=== PATIENT | male | born 1970 | race Caucasian/White ===

== ENCOUNTER 2019-03-14 20:00 | Outpatient (CLI) | payer BC, SELFPAY | END 2019-03-14 20:01 | disposition home or self-care (01) | LOC: SLEEP 03-15 09:54 | PROVIDERS: Family Provider Nurse Practitioner Family; PCP Nurse Practitioner Family; Visit Provider Nurse Practitioner Family | DX: G47.33 Obstructive sleep apnea (adult) (pediatric) (principal) | CPT/HCPCS: 95810; 95811 ==

== ENCOUNTER → 2020-01-16 09:26 | Outpatient (BNVA) | payer BC, SELFPAY | PROVIDERS: Family Provider Nurse Practitioner Family; PCP Nurse Practitioner Family; Visit Provider Nurse Practitioner | DX: I10 Essential (primary) hypertension (principal); E78.2 Mixed hyperlipidemia | CPT/HCPCS: 80053; 80061; 81000; 85025 ==

== ENCOUNTER → 2020-12-19 11:01 | Outpatient (BNVA) | payer BC, SELFPAY | PROVIDERS: Family Provider Nurse Practitioner Family; PCP Nurse Practitioner Family; Visit Provider Nurse Practitioner | DX: M25.561 Pain in right knee (principal); M54.50 Low back pain, unspecified; M79.605 Pain in left leg; I10 Essential (primary) hypertension; G47.33 Obstructive sleep apnea (adult) (pediatric); F41.9 Anxiety disorder, unspecified; F32.9 Major depressive disorder, single episode, unspecified; J45.909 Unspecified asthma, uncomplicated; E78.2 Mixed hyperlipidemia; M47.816 Spondylosis without myelopathy or radiculopathy, lumbar region; M17.11 Unilateral primary osteoarthritis, right knee | CPT/HCPCS: 72100; 73562; 80053; 80061; 84443 ==

== ENCOUNTER 2021-01-31 13:02 | Outpatient (CLI) | payer BC, SELFPAY ==
--- NOTE | 2021-01-31 13:09 | XR_ITS ---
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 Findings: No abnormal intraabdominal masses or calcifications are seen. There is no dilatated small bowel or ev idence of obstruction. There is a moderate amount of fecal material in the ascending colon. 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 XR/XR abdomen 1V* [id number] Impression: Negative KUB.
[2021-01-31 13:34] LABS: Basophils # 0.1 10^3/uL (0.0-0.1); Basophils % 0.4 %; Hematocrit 45.3 % (42.0-52.0); Hemoglobin 14.8 g/dL (11.7-16.6); Lymphocytes # 1.1 10^3/uL (0.8-4.8); Lymphocytes % 4.5 %; Mean Corpuscular HGB Conc 32.7 g/dL (30.0-36.0); Mean Corpuscular Hemoglobin 28.6 pg (28.0-34.0); Mean Corpuscular Volume 87.6 fl (80-94); Mean Platelet Volume 11.2 fL (7.4-10.4); Monocytes # 1.8 10^3/uL (0.2-0.9); Monocytes % 7.2 %; Neutrophils # 21.43 10^3/uL (1.8-7.7); Nucleated Red Blood Cells % 0 %; Platelet Count 207 10^3/cmm (130-400); Red Blood Count 5.17 10^6/uL (4.1-5.3); Red Cell Distribution Width 13.2 % (12.1-15.1); White Blood Count 24.7 10^3/uL (4.0-10.0)
[2021-01-31 13:54] LABS: Alanine Aminotransferase 17 U/L (0-41); Alkaline Phosphatase 56 IU/L (40-130); Anion Gap 16.1 (5-19); Aspartate Amino Transferase 14 U/L (0-40); Blood Urea Nitrogen 15 mg/dL (6-20); Calcium 8.5 mg/dL (8.5-10.5); Carbon Dioxide 22 mmol/L (22-29); Chloride 101 mmol/L (98-107); Globulin 3.6 g/dL (1.3-4.6); Glomerular Filtration Rate 71.1 mL/min (90-130); Glucose 168 mg/dL (65-115); Osmolality Calculated 285 mOsm/kg (285-295); Potassium 4.1 mmol/L (3.5-5.1); Sodium 135 mmol/L (136-145); Total Bilirubin 0.8 mg/dL (0.15-1.2); Total Protein 7.6 g/dL (6.6-8.7)
[2021-01-31 14:28] LABS: Estmated Average Glucose 114; Hemoglobin A1C 5.6 % (4.0-6.0)
== END 2021-01-31 13:03 | disposition home or self-care (01) ==
PROVIDERS: PCP Nurse Practitioner Family; Visit Provider Nurse Practitioner Family
DX: N41.9 Inflammatory disease of prostate, unspecified (principal); R73.9 Hyperglycemia, unspecified
CPT/HCPCS: 74018; 80053; 81003; 83036; 85025; 87086

== ENCOUNTER 2021-03-05 10:29 | Outpatient (CLI) | payer BC, SELFPAY ==
[2021-03-05 10:37] VITALS: BP 152/67; PULSE 56; RESP 20; TEMP 36.4; O2SAT 97; BMI 43.3
[2021-03-05 11:10] VITALS: BP 125/73; PULSE 59; RESP 16; TEMP 36.4; O2SAT 97
[2021-03-05 12:10] VITALS: BP 113/63; PULSE 76; RESP 16; TEMP 36.6; O2SAT 95
== END 2021-03-05 10:30 | disposition home or self-care (01) ==
LOC: OPS 10:30
PROVIDERS: PCP Nurse Practitioner Family; Visit Provider Nurse Practitioner
DX: U07.1 COVID-19 (principal)
CPT/HCPCS: 96365

== ENCOUNTER 2021-03-08 12:06 | Inpatient (IN) | payer BC, SELFPAY ==
[2021-03-08] VITALS (8 sets, daily range): BP systolic 121–146; BP diastolic 70–91; PULSE 66–77; RESP 21–27; TEMP 36.6–36.7; O2SAT 92–95; BMI 43.3
--- NOTE | 2021-03-08 12:21 | XR_ITS ---
WS: [id number] Portable AP upright chest, 03/08/2021 Clinical Data: dyspnea/cough Comparison: None. Findings: Bilateral patchy pulmonary opacities are present with more on the left than the right. No n odules, masses or effusions are seen. The heart is normal. There may be right tracheal bronchial lymp h nodes. The pulmonary vascularity is normal. No pneumothorax is seen. XR/XR chest 1V portable [id number] Impression: 1. Patchy bilateral pulmonary opacities most consistent with diffuse pneumonia. 2. Possible right tracheobronchial adenopathy.
--- NOTE | 2021-03-08 12:21 | ECG_ITS ---
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 Measurements Intervals [place] Rate: 75 P: 89 GA: 140 QRS: 20 QRSD: 102 T: 55 QT: 377 QTc: 421 Interpretive Statements SINUS RHYTHM WITH OCCASIONAL VENTRICULAR PREMATURE COMPLEXES LOW QRS VOLTAGE IN PRECORDIAL LEADS [QRS DEFLECTION < 1.0 mV IN CHEST LEADS] PROBABLE LATERAL MYOCARDIAL INFARCTION , OF INDETERMINATE AGE [35 ms Q WAVE IN I/aVL/V5/V6] No previous ECG available for comparison Electronically Signed On 03-08-2021 17:53:46 PROJECT ADMIN by Ricarda Neville M.D. [id number]
[2021-03-08 12:56] LABS: ABG PCO2 31.6 mmHg (35-45); ABG PH Result 7.42 (7.35-7.45); Alveolar-Arterial Oxygen Gradi 5.5 mmHg (5-10); Arterial Blood Gas Hematocrit 46.5 % (42-52); Base Excess ABG -2.7 mmol/L (-2.0-2.0); Blood Gas Allen Test Pos; Blood Gas Sample Site Radial, right; Blood Gas Sample Type Arterial; Carboxyhemoglobin 0.8 %THgb (0.4-20.1); HCO3 ABG 20.6 mmol/L (22-26); HGB O2 Sat 93.4 % (95-100); Ionized Calcium Level - ABG 1.1 mmol/L (1.1-1.4); Methemoglobin 0.7 % (0.4-1.5); Oxygen Saturation ABG 94.9; PO2 ABG 68.7 mmHg (80.0-100.0); Potassium Level - ABG 4.4 mmol/L (3.5-5.0); Total Hemoglobin 15.2 g/dL (14-18)
--- NOTE | 2021-03-08 13:28 | W.ED.COVID ---
HPI - COVID General: Chief Complaint: Shortness of Breath/Dyspnea Stated Complaint: COVID + SOB,Weakness,LowO2,and [place] Time Seen by Provider: 03/08/21 12:20 Triage information: Has fever, cough or shortness of breath. Exposure to COVID + person last 14 days History of Present Illness: HPI Narrative: 51-year-old male presents emergency room with complaints of shortness of breath and hypoxia. 5 days ago patient had a positive home COVID test 2 days ago he had monoclonal antibodies. His daughter is a nurse was at home with him and noticed him increasingly short of breath she checked his O2 sats and reports that they were in the 70% range with activity with rest improved to the mid to low 80s. On arrival here we are tracking mid to low 90s on room air at rest. Patient is obese has a history of hypertension is not diabetic. He is currently on doxycycline. MD complaint: known COVID positive Prior covid testing: yes, results known Prior testing date: 03/03/21 COVID 19 common symptoms: positive fever(s), chills, cough, non-productive cough, dyspnea, fatigue, body aches, headache(s), throat pain, nasal congestion, nausea, diarrhea and chest tightness; negative loss of sense of smell and/or taste or vomiting COVID 19 other sytmptoms: positive requiring oxygen; negative chest pain Onset (ago): day(s) (10) Severity: moderate Pertinent comorbid conditions: hypertension and obesity Treatment prior to arrival: none COVID Results: SARS-CoV-2 (PCR) Detected (NOT DETECT) A 03/08/21 13:55 03/08/21 Coronavirus Type 229E (PCR) Not detected (NOT DETECT) 03/08/21 13:55 03/08/21 Review of Systems Const: Reports: fever(s), chills, body aches and fatigue ENMT: Reports: throat pain and nasal congestion Card: Denies: chest pain, edema, dyspnea on exertion or orthopnea Resp: Reports: dyspnea and non-productive cough GI: Reports: nausea and diarrhea; Denies: vomiting : Denies: flank pain, dysuria, urinary frequency or urinary urgency Skin/Breast: Denies: rash or pruritus Neuro: Reports: headache(s) PFSH ED PFSH: Medical History Anxiety and depression Essential (primary) hypertension Lumbar degenerative disc disease Mixed hyperlipidemia Severe obstructive sleep apnea Surgical History No pertinent past surgical history Family History Other Cancer Heart disease Social History Second hand smoke exposure: No Smoking risk assessment/counseling performed?: No Alcohol intake: never Desire information about alcohol rehabilitation?: No Counseling given: No Desire information about substance/drug rehabilitation?: No Counseling given: No Adopted: No Caregiver/support person: No Lives independently: Yes Household members: spouse Marital status: Number of children: 2 service: No Current occupational status: employed History of recent travel: No Current gender identity: Male Physical Exam Const: COMMON NORMALS: no acute distress GENERAL APPEARANCE: cooperative and comfortable ORIENTATION/CONSCIOUSNESS: Yes awake, Yes oriented to person, Yes oriented to place and Yes oriented to time HENMT: COMMON NORMALS: normocephalic, atraumatic and hearing grossly normal bilaterally HEAD & SCALP: normocephalic and atraumatic Neck/C-Spine: COMMON NORMALS: no JVD Lymph: LYMPHATIC: no lymphadenopathy noted and no lymphedema noted Resp: AUSCULTATION: crackles and wheezes Cardio: COMMON NORMALS: no JVD, regular rate, regular rhythm and No murmurs present (Cardio) RATE: regular rate RHYTHM: regular rhythm GI: COMMON NORMALS: Soft to palpation and No hepatosplenomegaly present AUSCULTATION: Yes normoactive bowel sounds PALPATION: Yes Soft to palpation, No Tenderness to palpation present (GI), No Guarding due to palpation present (GI) and Yes No hepatosplenomegaly present Extremity: COMMON NORMALS: normal to inspection, capillary refill normal, no clubbing, cyanosis or edema, no calf tenderness and no pedal edema Neuro: SENSORIUM/ORIENTATION: Yes oriented to person, Yes oriented to place and Yes oriented to time Skin: COMMON NORMALS: no rashes or lesions noted GENERAL SKIN EXAM: no rashes or lesions noted Course Vital Signs: Vital signs: Vital Signs Temperature 97.5 F L 03/09/21 12:00 Pulse Rate 69 03/09/21 12:00 Respiratory Rate 20 H 03/09/21 12:00 Blood Pressure 137/76 03/09/21 12:00 Pulse Oximetry 92 03/09/21 12:00 MDM - COVID MDM Narrative: Medical decision making narrative: Patient is COVID-positive. I am concerned about the report from at home where he desatted into the low 80s and even upper 70 percentile. His daughter is a nurse who actually has significant experience dealing with COVID patients and was caring for him at home and monitored this she reported this history. His chest x-ray is very concerning. Here in the emergency room his sats have been very good. I do think given that report of hypoxia that he needs to be on observation I think he is at significant risk for respiratory deterioration and compromise. He certainly has significant risk factors including obesity and hypertension I suspect he has impaired glucose tolerance. Addition to this he has a significant elevation in CRP which can be predictive of a more difficult course with COVID. Patient has already maximized outpatient therapy needs received monoclonal antibodies. We will go ahead and start remdesivir and dexamethasone. Lab Data: Labs: Lab Results 03/08/21 03/08/21 03/08/21 12:40 13:55 13:55 WBC 13.0 10^3/uL H 10 ^3/uL (4.0-10.0) RBC 5.40 10^6/uL H 10 ^6/uL (4.1-5.3) Hgb 15.4 g/dL g/dL (11.7-16.6) Hct 46.1 % % (42.0-52.0) MCV 85.4 fl fl (80-94) MCH 28.5 pg pg (28.0-34.0) MCHC 33.4 g/dL g/dL (30.0-36.0) RDW 12.7 % % (12.1-15.1) Plt Count 305 10^3/cmm 10^3 /cmm (130-400) MPV 11.0 fL H fL (7.4-10.4) Neut % (Auto) 86.3 % % Lymph % (Auto) 4.5 % % [place] % (Auto) 7.5 % % Eos % (Auto) 0.0 % % Baso % (Auto) 0.5 % % Neut # (Auto) 11.24 10^3/uL H 1 0^3/uL (1.8-7.7) Lymph # (Auto) 0.6 10^3/uL L 10^ 3/uL (0.8-4.8) [place] # (Auto) 1.0 10^3/uL H 10^ 3/uL (0.2-0.9) Eos # (Auto) 0.0 10^3/uL 10^3/ uL (0.0-0.8) Baso # (Auto) 0.1 10^3/uL 10^3/ uL (0.0-0.1) Nucleated RBC % (a uto) 0 % % Nucleated RBCs # 0.0 /100WBC /100W BC D-Dimer 1.42 ug/mIFEU H u g/mIFEU (0-0.59) Specimen Type Arterial Sample Site Radial, right ABG pH 7.42 (7.35-7.45) ABG pCO2 31.6 mmHg L mmHg (35-45) ABG pO2 68.7 mmHg L mmHg (80.0-100.0) ABG HCO3 20.6 mmol/L L mmo l/L (22-26) ABG O2 Saturation 94.9 ABG Base Excess -2.7 mmol/L L mmo l/L (-2.0-2.0) Silas Test Pos A-a O2 Gradient 5.5 mmHg mmHg (5-10) Hematocrit 46.5 % % (42-52) Hgb O2 Saturation 93.4 % L % (95-100) Carboxyhemoglobin 0.8 %THgb %THgb (0.4-20.1) Methemoglobin 0.7 % % (0.4-1.5) Total Hemoglobin 15.2 g/dL g/dL (14-18) Sodium 133.0 mmol/L mmol /L (131-143) Potassium 4.4 mmol/L mmol/L (3.5-5.0) Glucose 120.0 mg/dL H mg/ dL (70-115) Ionized Calcium 1.1 mmol/L mmol/L (1.1-1.4) O2 Delivery Device None O2 Liters/Min FiO2 21.0 % % Research Compliance Specialist ID Hensa Chloride Carbon Dioxide Anion Gap BUN Creatinine GFR Calculation POC Glucose Calculated Osmolal ity Lactic Acid Calcium Magnesium Total Bilirubin AST ALT Alkaline Phosphata se Lactate Dehydrogen ase C-Reactive Protein Total Protein Albumin Globulin Procalcitonin Coronavirus 229E ( PCR) SARS-CoV-2 (PCR) 03/08/21 03/08/21 03/08/21 13:55 13:55 13:55 WBC RBC Hgb Hct MCV MCH MCHC RDW Plt Count MPV Neut % (Auto) Lymph % (Auto) [place] % (Auto) Eos % (Auto) Baso % (Auto) Neut # (Auto) Lymph # (Auto) [place] # (Auto) Eos # (Auto) Baso # (Auto) Nucleated RBC % (a uto) Nucleated RBCs # D-Dimer Specimen Type Sample Site ABG pH ABG pCO2 ABG pO2 ABG HCO3 ABG O2 Saturation ABG Base Excess Silas Test A-a O2 Gradient Hematocrit Hgb O2 Saturation Carboxyhemoglobin Methemoglobin Total Hemoglobin Sodium 131 mmol/L L mmol /L (136-145) Potassium 4.5 mmol/L mmol/L (3.5-5.1) Glucose 114 mg/dL mg/dL (65-115) Ionized Calcium O2 Delivery Device O2 Liters/Min FiO2 Research Compliance Specialist ID Chloride 96 mmol/L L mmol/ L (98-107) Carbon Dioxide 20 mmol/L L mmol/ L (22-29) Anion Gap 19.5 H (5-19) BUN 24 mg/dL H mg/dL (6-20) Creatinine 1.1 mg/dL mg/dL (0.7-1.2) GFR Calculation 70.9 mL/min L mL/ min (90-130) POC Glucose Calculated Osmolal ity 277 mOsm/kg L mOs m/kg (285-295) Lactic Acid 1.3 mmol/L mmol/L (0.5-2.2) Calcium 8.7 mg/dL mg/dL (8.5-10.5) Magnesium Total Bilirubin 0.5 mg/dL mg/dL (0.15-1.2) AST 46 U/L H U/L (0-40) ALT 40 U/L U/L (0-41) Alkaline Phosphata se 43 IU/L IU/L (40-130) Lactate Dehydrogen ase C-Reactive Protein 158.0 mg/L H mg/L (0.0-4.9) Total Protein 7.7 g/dL g/dL (6.6-8.7) Albumin 3.9 g/dL g/dL (3.5-5.2) Globulin 3.8 g/dL g/dL (1.3-4.6) Procalcitonin 0.43 ng/mL ng/mL (0-0.5) Coronavirus 229E ( PCR) Not detected (NOT DETECT) SARS-CoV-2 (PCR) Detected A (NOT DETECT) 03/08/21 03/09/21 03/09/21 20:37 04:32 04:32 WBC 11.2 10^3/uL H 10 ^3/uL (4.0-10.0) RBC 4.94 10^6/uL 10^6 /uL (4.1-5.3) Hgb 13.9 g/dL g/dL (11.7-16.6) Hct 41.2 % L % (42.0-52.0) MCV 83.4 fl fl (80-94) MCH 28.1 pg pg (28.0-34.0) MCHC 33.7 g/dL g/dL (30.0-36.0) RDW 12.7 % % (12.1-15.1) Plt Count 325 10^3/cmm 10^3 /cmm (130-400) MPV 11.3 fL H fL (7.4-10.4) Neut % (Auto) 84.7 % % Lymph % (Auto) 5.6 % % [place] % (Auto) 8.4 % % Eos % (Auto) 0.0 % % Baso % (Auto) 0.1 % % Neut # (Auto) 9.47 10^3/uL H 10 ^3/uL (1.8-7.7) Lymph # (Auto) 0.6 10^3/uL L 10^ 3/uL (0.8-4.8) [place] # (Auto) 0.9 10^3/uL 10^3/ uL (0.2-0.9) Eos # (Auto) 0.0 10^3/uL 10^3/ uL (0.0-0.8) Baso # (Auto) 0.0 10^3/uL 10^3/ uL (0.0-0.1) Nucleated RBC % (a uto) 0 % % Nucleated RBCs # 0.0 /100WBC /100W BC D-Dimer Specimen Type Sample Site ABG pH ABG pCO2 ABG pO2 ABG HCO3 ABG O2 Saturation ABG Base Excess Silas Test A-a O2 Gradient Hematocrit Hgb O2 Saturation Carboxyhemoglobin Methemoglobin Total Hemoglobin Sodium 131 mmol/L L mmol /L (136-145) Potassium 4.5 mmol/L mmol/L (3.5-5.1) Glucose 132 mg/dL H mg/dL (65-115) Ionized Calcium O2 Delivery Device O2 Liters/Min FiO2 Research Compliance Specialist ID Chloride 98 mmol/L mmol/L (98-107) Carbon Dioxide 21 mmol/L L mmol/ L (22-29) Anion Gap 16.5 (5-19) BUN 29 mg/dL H mg/dL (6-20) Creatinine 1.0 mg/dL mg/dL (0.7-1.2) GFR Calculation 79.1 mL/min L mL/ min (90-130) POC Glucose 197 mg/dL H mg/dL (70-110) Calculated Osmolal ity 280 mOsm/kg L mOs m/kg (285-295) Lactic Acid Calcium 8.1 mg/dL L mg/dL (8.5-10.5) Magnesium 2.7 mg/dL H mg/dL (1.7-2.3) Total Bilirubin 0.4 mg/dL mg/dL (0.15-1.2) AST 43 U/L H U/L (0-40) ALT 40 U/L U/L (0-41) Alkaline Phosphata se 35 IU/L L IU/L (40-130) Lactate Dehydrogen ase 460 U/L H U/L (135-225) C-Reactive Protein Total Protein 6.8 g/dL g/dL (6.6-8.7) Albumin 3.5 g/dL g/dL (3.5-5.2) Globulin 3.3 g/dL g/dL (1.3-4.6) Procalcitonin Coronavirus 229E ( PCR) SARS-CoV-2 (PCR) 03/09/21 03/09/21 05:57 09:50 WBC RBC Hgb Hct MCV MCH MCHC RDW Plt Count MPV Neut % (Auto) Lymph % (Auto) [place] % (Auto) Eos % (Auto) Baso % (Auto) Neut # (Auto) Lymph # (Auto) [place] # (Auto) Eos # (Auto) Baso # (Auto) Nucleated RBC % (a uto) Nucleated RBCs # D-Dimer Specimen Type Arterial Arterial Sample Site Radial, left Radial, right ABG pH 7.45 7.43 (7.35-7.45) (7.35-7.45) ABG pCO2 31.8 mmHg L mmHg 31.9 mmHg L mmHg (35-45) (35-45) ABG pO2 48.8 mmHg L mmHg 55.3 mmHg L mmHg (80.0-100.0) (80.0-100.0) ABG HCO3 21.8 mmol/L L mmo l/L 21.2 mmol/L L mmo l/L (22-26) (22-26) ABG O2 Saturation 87.0 90.0 ABG Base Excess -1.4 mmol/L mmol/ L -2.2 mmol/L L mmo l/L (-2.0-2.0) (-2.0-2.0) Silas Test Pos Pos A-a O2 Gradient 8.1 mmHg mmHg 7.2 mmHg mmHg (5-10) (5-10) Hematocrit 42.6 % % 43.0 % % (42-52) (42-52) Hgb O2 Saturation 85.3 % L % 88.4 % L % (95-100) (95-100) Carboxyhemoglobin 0.9 %THgb %THgb 0.8 %THgb %THgb (0.4-20.1) (0.4-20.1) Methemoglobin 1.1 % % 0.9 % % (0.4-1.5) (0.4-1.5) Total Hemoglobin 13.9 g/dL L g/dL 14.0 g/dL g/dL (14-18) (14-18) Sodium 133.0 mmol/L mmol /L 134.0 mmol/L mmol /L (131-143) (131-143) Potassium 4.3 mmol/L mmol/L 4.1 mmol/L mmol/L (3.5-5.0) (3.5-5.0) Glucose 129.0 mg/dL H mg/ dL 145.0 mg/dL H mg/ dL (70-115) (70-115) Ionized Calcium 1.1 mmol/L mmol/L 1.2 mmol/L mmol/L (1.1-1.4) (1.1-1.4) O2 Delivery Device Room air Nc O2 Liters/Min 2.0 % % FiO2 21.0 % % Research Compliance Specialist ID Nicer2 Dave Chloride Carbon Dioxide Anion Gap BUN Creatinine GFR Calculation POC Glucose Calculated Osmolal ity Lactic Acid Calcium Magnesium Total Bilirubin AST ALT Alkaline Phosphata se Lactate Dehydrogen ase C-Reactive Protein Total Protein Albumin Globulin Procalcitonin Coronavirus 229E ( PCR) SARS-CoV-2 (PCR) COVID Results: SARS-CoV-2 (PCR) Detected (NOT DETECT) A 03/08/21 13:55 03/08/21 Coronavirus Type 229E (PCR) Not detected (NOT DETECT) 03/08/21 13:55 03/08/21 Discharge Plan Discharge Patient Disposition: Placed in Observation Admit Provider: Neela Mercedes Clinical Impression: Pneumonia due to COVID-19 virus Condition: Stable Coding Level of Care Code ED Leaf Size Picker for Chg Fwd Exam Comprehensive
[2021-03-08 14:15] LABS: Basophils # 0.1 10^3/uL (0.0-0.1); Basophils % 0.5 %; Hematocrit 46.1 % (42.0-52.0); Hemoglobin 15.4 g/dL (11.7-16.6); Lymphocytes # 0.6 10^3/uL (0.8-4.8); Lymphocytes % 4.5 %; Mean Corpuscular HGB Conc 33.4 g/dL (30.0-36.0); Mean Corpuscular Hemoglobin 28.5 pg (28.0-34.0); Mean Corpuscular Volume 85.4 fl (80-94); Monocytes % 7.5 %; Neutrophils # 11.24 10^3/uL (1.8-7.7); Neutrophils % 86.3 %; Nucleated Red Blood Cells % 0 %; Platelet Count 305 10^3/cmm (130-400); Red Cell Distribution Width 12.7 % (12.1-15.1)
[2021-03-08 14:28] LABS: Lactic Sepsis W/Reflex 1.3 mmol/L (0.5-2.2)
[2021-03-08 14:30] LABS: Alanine Aminotransferase 40 U/L (0-41); Albumin Level 3.9 g/dL (3.5-5.2); Alkaline Phosphatase 43 IU/L (40-130); Anion Gap 19.5 (5-19); Aspartate Amino Transferase 46 U/L (0-40); Blood Urea Nitrogen 24 mg/dL (6-20); Calcium 8.7 mg/dL (8.5-10.5); Carbon Dioxide 20 mmol/L (22-29); Chloride 96 mmol/L (98-107); Globulin 3.8 g/dL (1.3-4.6); Glomerular Filtration Rate 70.9 mL/min (90-130); Glucose 114 mg/dL (65-115); Osmolality Calculated 277 mOsm/kg (285-295); Potassium 4.5 mmol/L (3.5-5.1); Sodium 131 mmol/L (136-145); Total Bilirubin 0.5 mg/dL (0.15-1.2); Total Protein 7.7 g/dL (6.6-8.7)
[2021-03-08 14:31] LABS: D Dimer 1.42 ug/mIFEU (0-0.59)
[2021-03-08 14:37] LABS: Procalcitonin 0.43 ng/mL (0-0.5)
--- NOTE | 2021-03-08 15:22 | PC.PHAR ---
pt states he takes care of his own medications-pt states he hasnt taken his hydroxychloroquine in about 8 days ext med history shows last filled 12/18/20 90d/s pt states gave to him for prevention of covid-
[2021-03-08] MEDS: dexamethasone 10 mg/mL INJ 6 MG IVP (15:40)
[2021-03-08 16:03] LABS: Adenovirus Not Detected (NOT DETECT); Chlamydia Pneumoniae Not Detected (NOT DETECT); Coronavirus 229E,HKU1,NL63,OC4 Not Detected (NOT DETECT); Human Metapneumovirus Not Detected (NOT DETECT); Human Rhinovirus/Enterovirus Not Detected (NOT DETECT); Influenza A Not Detected (NOT DETECT); Influenza A H1 Not Detected (NOT DETECT); Influenza A H1-2009 Not Detected (NOT DETECT); Influenza A H3 Not Detected (NOT DETECT); Influenza B Not Detected (NOT DETECT); Mycoplasma Pneumoniae Not Detected (NOT DETECT); Parainfluenza Virus Type 1 Not Detected (NOT DETECT); Parainfluenza Virus Type 2 Not Detected (NOT DETECT); Parainfluenza Virus Type 3 Not Detected (NOT DETECT); Parainfluenza Virus Type 4 Not Detected (NOT DETECT); Respiratory Syncytial Virus A Not Detected (NOT DETECT); Respiratory Syncytial Virus B Not Detected (NOT DETECT); SARS-COV-2 Detected (NOT DETECT)
--- NOTE | 2021-03-08 16:08 | CTR_ITS ---
PROCEDURE INFORMATION: Exam: CTA Chest With Contrast Exam date and time: 03/08/2021 4:08 PM Age: 51 years old Clinical indication: Shortness of breath; Additional info: Dyspnea/covid TECHNIQUE: Imaging protocol: Computed tomographic angiography of the chest with contrast. 3D rendering (Not supervised by radiologist): MIP and/or 3D reconstructed images were created by the technologist. Radiation optimization: All CT scans at this facility use at least one of these dose optimization techniques: automated exposure control; mA and/or kV adjustment per patient size (includes targeted exams where dose is matched to clinical indication); or iterative reconstruction. Contrast material: OMNI 350; Contrast volume: 95 ml; Contrast route: INTRAVENOUS (IV); COMPARISON: CR XR chest 1V portable [id number] 03/08/2021 1:35 PM RADIATION DOSE METRICS: Total DLP (mGy-cm): 611.07 FINDINGS: Pulmonary arteries: Normal. No pulmonary emboli. Aorta: Unremarkable. No aortic aneurysm. No aortic dissection. Lungs: Patchy bilateral airspace infiltrates. Pleural spaces: Unremarkable. No pneumothorax. No pleural effusion. Heart: Coronary artery atherosclerotic calcifications. Lymph nodes: Prominent mediastinal lymph nodes measuring up to 15 mm, nonspecific. Bones/joints: Unremarkable. No acute fracture. Soft tissues: Unremarkable. CT/CT angio chest PE protcl [id number] IMPRESSION: 1. Negative for pulmonary embolus 2. Patchy bilateral airspace infiltrates. 3. Prominent mediastinal lymph nodes measuring up to 15 mm, nonspecific. 4. Coronary artery atherosclerotic calcifications.
--- NOTE | 2021-03-08 16:27 | P.HP_ITS ---
Providers/Chief Complaint Primary Care Provider: BHAKTI Quintanilla Chief Complaint: COVID + SOB,Weakness,LowO2,and [place] History of Present Illness Du Bah is a 51 year old male with past medical history of anxiety depression, hypertension, degenerative disc disease in the lumbar region, hyperlipidemia, severe obstructive sleep apnea presented to the hospital today for COVID-like symptoms. He has been having shortness of breath and hypoxia. He states that symptoms started about 9 days ago he was tested positive on Thursday. He got 1 treatment of monoclonal antibodies and feels he got worse. His daughter checked his pulse ox at home and he was saturating in the 70s with activity and with rest did improve to the mid low 80s.. Therefore he was brought to the hospital. He is currently on doxycycline as an outpatient. ED course: Blood pressure 123/76 heart rate 24, pulse 77, temperature 97.9, pulse ox 95%. Chest x-ray was done which showed patchy bilateral pulmonary opacities most consistent with diffuse pneumonia. Possible right tracheobronchial adenopathy. D-dimer 1.42, CRP 158. CTA ordered to rule out pulmonary embolism. COVID PCR positive. Urinalysis did show positive leukocyte esterase and 15-25 WBCs. Review of Systems General: Reports: 10 or more systems reviewed and unremarkable except in HPI and below Medications/Allergies Home Medications Medication Instructions Recorded Confirmed Last Taken Type albuterol sulfate 90 mcg/actuation 2 puff INHALATION Q6H PRN #8.5 gm 12/19/20 03/08/21 Unknown Rx aerosol inhaler Disposable nebulizer circuit #1 ea 03/04/21 03/08/21 Unknown Rx albuterol sulfate 2.5 mg INHALATION Q4H PRN #75 ml 03/04/21 03/08/21 Unknown Rx budesonide 0.5 mg/2 mL suspension 0.5 mg INHALATION BID #60 ml 03/04/21 03/08/21 Unknown Rx for nebulization Effexor XR 75 mg PO BEDTIME 03/08/21 03/08/21 03/07/21 History Lasix 20 mg PO QAM PRN 03/08/21 03/08/21 Unknown History Tricor 145 mg PO BEDTIME 03/08/21 03/08/21 03/07/21 History ascorbic acid (vitamin C) [Vitamin 500 mg PO DAILY 03/08/21 03/08/21 Unknown History C] aspirin [Aspir-81] 81 mg PO PRN PRN 03/08/21 03/08/21 Unknown History cholecalciferol (vitamin D3) 125 mcg PO DAILY 03/08/21 03/08/21 Unknown History [Vitamin D3] dexamethasone 6 mg PO DAILY 03/08/21 03/08/21 03/08/21 09:30 History doxepin 10 mg PO BEDTIME 03/08/21 03/08/21 03/07/21 History hydroxychloroquine 200 mg PO EVERY OTHER DAY 03/08/21 03/08/21 Unknown History lisinopril 20 mg PO BEDTIME 03/08/21 03/08/21 03/07/21 History naproxen sodium [Aleve] 440 mg PO Q12H PRN 03/08/21 03/08/21 Unknown History zinc 50 mg PO DAILY 03/08/21 03/08/21 Unknown History Allergies Allergy/AdvReac Type Severity Reaction Status Date / Time Penicillins Allergy Unknown Verified 03/08/21 15:18 PFSH Acute PFSH: Medical History Anxiety and depression Essential (primary) hypertension Lumbar degenerative disc disease Mixed hyperlipidemia Severe obstructive sleep apnea Surgical History No pertinent past surgical history Family History Other Cancer Heart disease Social History Second hand smoke exposure: No Smoking risk assessment/counseling performed?: No Alcohol intake: never Desire information about alcohol rehabilitation?: No Counseling given: No Desire information about substance/drug rehabilitation?: No Counseling given: No Adopted: No Caregiver/support person: No Lives independently: Yes Household members: spouse Marital status: Number of children: 2 service: No Current occupational status: employed History of recent travel: No Current gender identity: Male Vitals/I&O/Wt Last Vital Signs Temp 97.9 F 03/08/21 12:23 Pulse 70 03/08/21 15:30 Resp 21 H 03/08/21 15:30 BP 141/80 03/08/21 15:30 Pulse Ox 94 03/08/21 15:30 Weight last 48 hrs Weight 174.633 kg Physical Exam Narrative: EXAM NARRATIVE: General: Alert oriented x3, patient seen sitting up in bed on room air. HEENT: Normocephalic, atraumatic, EOMI, Cardio: Regular rate rhythm, normal S1-S2, no murmurs rubs gallops Respiratory: Good bilateral air entry, no wheezes no rhonchi appreciated GI: Abdomen soft, nontender, nondistended, bowel sounds + Behavior: Appropriate and cooperative Extremities: Pulses 2+, no edema, no cyanosis Data : 03/09/21 04:32 03/09/21 04:32 Micro: Microbiology 03/08/21 13:55 Blood Culture - Preliminary Blood SPECIMEN COLLECTED 03/08/21 13:55 Blood Culture - Preliminary Blood SPECIMEN COLLECTED A&P Assessment and plan (1) Severe obstructive sleep apnea: Status: Chronic (2) Pneumonia due to COVID-19 virus: Status: Acute (3) Essential (primary) hypertension: Status: Chronic Additional A&P Information #COVID-19 pneumonia #Severe obstructive sleep apnea #Obesity #Hypertension ? We will place on dexamethasone 6 IV daily, remdesivir x5 days ? Placed on CPAP overnight ? DuoNeb every 4 hours as needed ? Supportive care ? Oxygen as needed ? CRP 158. ? Monitor oxygen. ? Vitamin C vitamin D ? Continue home medications for hypertension ? Sliding scale insulin -Check CTA to rule out PE -Procalcitonin borderline negative. Hold off on antibiotics today. Full code DVT prophylaxis Lovenox 40 twice daily. Attestations Medical Necessity Statement*: COVID 19 pneumonia. Observation tonight Coding Level of Care Code Acute Therapy Tech for [facility] Fwd Diagnoses Severe obstructive sleep apnea G47.33 Pneumonia due to COVID-19 virus U07.1; J12.82 Essential (primary) hypertension I10
[2021-03-08] MEDS: remdesivir 200 MG in sodium chloride 0.9% (100 ml) 60 ML 100 MG IV (17:40)
[2021-03-08] MEDS: enoxaparin 40 mg/0.4 mL Syringe SUBCUT (18:12)
[2021-03-08] MEDS: ascorbic acid 500 mg Tablet 1000 MG PO (18:12)
[2021-03-08] MEDS: pantoprazole 40 mg SDV IVP (18:35)
[2021-03-08 20:42] LABS: Glucose Point of Care 197 mg/dL (70-110)
[2021-03-08] MEDS: venlafaxine ER (24HR) 75 mg Capsule PO (21:07)
[2021-03-08] MEDS: insulin lispro 100 unit/1 mL SUBCUT (21:07)
[2021-03-08] MEDS: lisinopril 20 mg Tablet PO (21:07)
[2021-03-09] VITALS (15 sets, daily range): BP systolic 122–152; BP diastolic 71–82; PULSE 66–94; RESP 18–22; TEMP 36.4–37.3; O2SAT 90–94
[2021-03-09 04:53] LABS: Basophils % 0.1 %; Hematocrit 41.2 % (42.0-52.0); Hemoglobin 13.9 g/dL (11.7-16.6); Lymphocytes # 0.6 10^3/uL (0.8-4.8); Lymphocytes % 5.6 %; Mean Corpuscular HGB Conc 33.7 g/dL (30.0-36.0); Mean Corpuscular Hemoglobin 28.1 pg (28.0-34.0); Mean Corpuscular Volume 83.4 fl (80-94); Mean Platelet Volume 11.3 fL (7.4-10.4); Monocytes # 0.9 10^3/uL (0.2-0.9); Monocytes % 8.4 %; Neutrophils # 9.47 10^3/uL (1.8-7.7); Neutrophils % 84.7 %; Nucleated Red Blood Cells % 0 %; Platelet Count 325 10^3/cmm (130-400); Red Blood Count 4.94 10^6/uL (4.1-5.3); Red Cell Distribution Width 12.7 % (12.1-15.1); White Blood Count 11.2 10^3/uL (4.0-10.0)
[2021-03-09 05:15] LABS: Alanine Aminotransferase 40 U/L (0-41); Albumin Level 3.5 g/dL (3.5-5.2); Alkaline Phosphatase 35 IU/L (40-130); Anion Gap 16.5 (5-19); Aspartate Amino Transferase 43 U/L (0-40); Blood Urea Nitrogen 29 mg/dL (6-20); Calcium 8.1 mg/dL (8.5-10.5); Carbon Dioxide 21 mmol/L (22-29); Chloride 98 mmol/L (98-107); Globulin 3.3 g/dL (1.3-4.6); Glomerular Filtration Rate 79.1 mL/min (90-130); Glucose 132 mg/dL (65-115); Lactate Dehydrogenase 460 U/L (135-225); Magnesium 2.7 mg/dL (1.7-2.3); Osmolality Calculated 280 mOsm/kg (285-295); Potassium 4.5 mmol/L (3.5-5.1); Sodium 131 mmol/L (136-145); Total Bilirubin 0.4 mg/dL (0.15-1.2); Total Protein 6.8 g/dL (6.6-8.7)
[2021-03-09 06:09] LABS: ABG PCO2 31.8 mmHg (35-45); ABG PH Result 7.45 (7.35-7.45); Alveolar-Arterial Oxygen Gradi 8.1 mmHg (5-10); Arterial Blood Gas Hematocrit 42.6 % (42-52); Base Excess ABG -1.4 mmol/L (-2.0-2.0); Blood Gas Allen Test Pos; Blood Gas Sample Site Radial, left; Blood Gas Sample Type Arterial; Carboxyhemoglobin 0.9 %THgb (0.4-20.1); HCO3 ABG 21.8 mmol/L (22-26); HGB O2 Sat 85.3 % (95-100); Ionized Calcium Level - ABG 1.1 mmol/L (1.1-1.4); Methemoglobin 1.1 % (0.4-1.5); Oxygen Device ROOM AIR; PO2 ABG 48.8 mmHg (80.0-100.0); Potassium Level - ABG 4.3 mmol/L (3.5-5.0); Total Hemoglobin 13.9 g/dL (14-18)
--- NOTE | 2021-03-09 08:00 | XRR_ITS ---
PROCEDURE INFORMATION: Exam: XR Chest Exam date and time: 03/09/2021 8:00 AM Age: 51 years old Clinical indication: Cough; Patient HX: F/u covid +; Additional info: Follow up TECHNIQUE: Imaging protocol: XR of the chest. Views: 1 view. COMPARISON: CR XR chest 1V portable [id number] 03/08/2021 1:35 PM FINDINGS: Lungs: Low lung volumes. No significant interval change patchy interstitial and alveolar opacities at the mid lungs and bases. No dense lobar consolidation. Pleural spaces: Unremarkable. No pleural effusion. No pneumothorax. Heart/Mediastinum: Unremarkable. No cardiomegaly. Bones/joints: Unremarkable. XR/XR chest 1V portable [id number] IMPRESSION: No significant interval change bilateral patchy interstitial and alveolar infiltrates in the setting of reported covid pneumonia.
[2021-03-09] MEDS: enoxaparin 40 mg/0.4 mL Syringe SUBCUT ×2 (08:27→17:49)
[2021-03-09] MEDS: zinc gluconate 50 mg Tablet PO (08:27)
[2021-03-09] MEDS: ascorbic acid 500 mg Tablet 1000 MG PO ×2 (08:27→17:50)
[2021-03-09] MEDS: ipratropium-albuterol 3 mL Neb INHALATION ×4 (09:49→20:35)
[2021-03-09 09:59] LABS: ABG PCO2 31.9 mmHg (35-45); ABG PH Result 7.43 (7.35-7.45); Alveolar-Arterial Oxygen Gradi 7.2 mmHg (5-10); Base Excess ABG -2.2 mmol/L (-2.0-2.0); Blood Gas Allen Test Pos; Blood Gas Sample Site Radial, right; Blood Gas Sample Type Arterial; Carboxyhemoglobin 0.8 %THgb (0.4-20.1); HCO3 ABG 21.2 mmol/L (22-26); HGB O2 Sat 88.4 % (95-100); Ionized Calcium Level - ABG 1.2 mmol/L (1.1-1.4); Methemoglobin 0.9 % (0.4-1.5); Oxygen Device NC; PO2 ABG 55.3 mmHg (80.0-100.0); Potassium Level - ABG 4.1 mmol/L (3.5-5.0)
--- NOTE | 2021-03-09 14:10 | P.PN_ITS ---
Subjective Subjective: Interval history: Seen this AM. He is requiring 4L NC o2 but does not feel short of breath. Daughter updated at bedside. Will order actemra for him. Pt willing to wear bipap tonight with possible addition of xanax for anxiety. RN will page if needed. Vitals/I&O/Wt Last Vital Signs Temp 97.5 F L 03/09/21 12:00 Pulse 69 03/09/21 12:00 Resp 20 H 03/09/21 12:00 BP 137/76 03/09/21 12:00 Pulse Ox 92 03/09/21 12:00 03/08/21 03/09/21 03/09/21 22:59 06:59 14:59 Intake Total 340 / 340 500 / 840 1060 / 1060 Balance 340 / 340 500 / 840 1060 / 1060 Weight last 48 hrs Weight 174.633 kg Physical Exam Narrative: EXAM NARRATIVE: General: Alert oriented x3, patient seen sitting up in recliner 4L HEENT: Normocephalic, atraumatic, EOMI, Cardio: Regular rate rhythm, normal S1-S2, no murmurs rubs gallops Respiratory: Good bilateral air entry, no wheezes no rhonchi appreciated, diminished at bases. GI: Abdomen soft, nontender, nondistended, bowel sounds + Behavior: Appropriate and cooperative Extremities: Pulses 2+, no edema, no cyanosis Data : 03/09/21 04:32 03/09/21 04:32 Micro: Microbiology 03/08/21 13:55 Blood Culture - Preliminary Blood NEGATIVE TO DATE 03/08/21 13:55 Blood Culture - Preliminary Blood NEGATIVE TO DATE 03/08/21 18:41 MRSA Culture - Final Nose 03/08/21 22:20 Legionella Urinary Antigen - Final Urine,Voided A&P Assessment and plan (1) Severe obstructive sleep apnea: Status: Chronic (2) Pneumonia due to COVID-19 virus: Status: Acute (3) Essential (primary) hypertension: Status: Chronic Additional A&P Information #COVID-19 pneumonia #Severe obstructive sleep apnea #Obesity #Hypertension ? We will place on dexamethasone 6 IV daily, remdesivir x5 days - Will give one dose of actemra ? Placed on CPAP overnight ? DuoNeb every 4 hours as needed ? Supportive care ? Oxygen as needed ? CRP 158. ? Monitor oxygen. ? Vitamin C vitamin D ? Continue home medications for hypertension ? Sliding scale insulin -Check CTA to rule out PE -Procalcitonin borderline negative. Hold off on antibiotics for now. Full code DVT prophylaxis Lovenox 40 twice daily. Attestations Medical Necessity Statement*: > 48 hour stay due to increased O2 requirements. Coding Level of Care Code Acute [facility] for [facility] Fwd Diagnoses Severe obstructive sleep apnea G47.33 Pneumonia due to COVID-19 virus U07.1; J12.82 Essential (primary) hypertension I10
[2021-03-09] MEDS: dexamethasone 4 mg/mL INJ 6 MG IVP (14:58)
[2021-03-09 17:25] LABS: Glucose Point of Care 140 mg/dL (70-110)
[2021-03-09 17:26] LABS: Glucose Point of Care 123 mg/dL (70-110)
[2021-03-09 17:26] LABS: Glucose Point of Care 220 mg/dL (70-110)
[2021-03-09] MEDS: insulin lispro 100 unit/1 mL SUBCUT ×2 (17:48→20:50)
[2021-03-09] MEDS: remdesivir 100 MG in sodium chloride 0.9% (100 ml) 80 ML IV (17:48)
[2021-03-09] MEDS: pantoprazole 40 mg SDV IVP (17:50)
[2021-03-09 20:16] LABS: Glucose Point of Care 233 mg/dL (70-110)
[2021-03-09] MEDS: budesonide 0.5 mg/2 mL Neb INHALATION (20:35)
[2021-03-09] MEDS: venlafaxine ER (24HR) 75 mg Capsule PO (20:50)
[2021-03-09] MEDS: lisinopril 20 mg Tablet PO (20:50)
[2021-03-09] MEDS: doxepin 10 mg Capsule PO (21:39)
[2021-03-10] VITALS (15 sets, daily range): BP systolic 107–139; BP diastolic 63–80; PULSE 69–81; RESP 18–20; TEMP 36.3–36.7; O2SAT 86–95
[2021-03-10] MEDS: ipratropium-albuterol 3 mL Neb INHALATION ×4 (00:01→20:45)
[2021-03-10 04:18] LABS: ABG PCO2 30.7 mmHg (35-45); ABG PH Result 7.41 (7.35-7.45); Arterial Blood Gas Hematocrit 54.2 % (42-52); Base Excess ABG -3.6 mmol/L (-2.0-2.0); Blood Gas Allen Test Pos; Blood Gas Sample Site Radial, left; Blood Gas Sample Type Arterial; Carboxyhemoglobin 0.5 %THgb (0.4-20.1); HCO3 ABG 19.6 mmol/L (22-26); HGB O2 Sat 92.6 % (95-100); Ionized Calcium Level - ABG 1.1 mmol/L (1.1-1.4); Methemoglobin 0.7 % (0.4-1.5); Oxygen Device NC; Oxygen Saturation ABG 93.8; PO2 ABG 73.2 mmHg (80.0-100.0); Potassium Level - ABG 13.4 mmol/L (3.5-5.0); Total Hemoglobin 17.7 g/dL (14-18)
--- NOTE | 2021-03-10 06:09 | PC.NURSE ---
shift summary pt was unable to tolerate the bipap even with his dose of doxepin. pt was placed on hhf at 25L at 45%, pt tolerated that well and was transitioned back to 3L nasal canula with an improved abg. pt has had no complaints through out the night.
[2021-03-10 06:42] LABS: Glucose Point of Care 164 mg/dL (70-110)
[2021-03-10 06:57] LABS: Basophils % 0.2 %; Eosinophils % 0.1 %; Hematocrit 42.3 % (42.0-52.0); Hemoglobin 14.1 g/dL (11.7-16.6); Lymphocytes # 0.7 10^3/uL (0.8-4.8); Lymphocytes % 8.5 %; Mean Corpuscular HGB Conc 33.3 g/dL (30.0-36.0); Mean Corpuscular Hemoglobin 28.8 pg (28.0-34.0); Mean Corpuscular Volume 86.3 fl (80-94); Mean Platelet Volume 11.3 fL (7.4-10.4); Monocytes # 0.9 10^3/uL (0.2-0.9); Monocytes % 10.4 %; Neutrophils # 6.81 10^3/uL (1.8-7.7); Neutrophils % 78.9 %; Nucleated Red Blood Cells % 0 %; Platelet Count 323 10^3/cmm (130-400); Red Cell Distribution Width 12.9 % (12.1-15.1); White Blood Count 8.6 10^3/uL (4.0-10.0)
[2021-03-10 07:12] LABS: Blood Urea Nitrogen 28 mg/dL (6-20); Calcium 7.9 mg/dL (8.5-10.5); Carbon Dioxide 18 mmol/L (22-29); Chloride 104 mmol/L (98-107); Glomerular Filtration Rate 89.3 mL/min (90-130); Glucose 149 mg/dL (65-115); Magnesium 2.6 mg/dL (1.7-2.3); Osmolality Calculated 290 mOsm/kg (285-295); Sodium 136 mmol/L (136-145)
[2021-03-10 07:57] LABS: Slide Review Slide Review Perform
[2021-03-10] MEDS: ascorbic acid 500 mg Tablet 1000 MG PO ×2 (08:21→17:31)
[2021-03-10] MEDS: enoxaparin 40 mg/0.4 mL Syringe SUBCUT ×2 (08:21→17:31)
[2021-03-10] MEDS: zinc gluconate 50 mg Tablet PO (08:22)
--- NOTE | 2021-03-10 08:51 | PM.PN ---
Subjective Subjective: Interval history: Seen this AM. He had O2 eval done this morning. Hypoxic on room air and requires 4L on exertion. Pt requesting to go home. Pt did not wear bipap ovrenight so was placed on high flow NC which he kept on for 4 hours. Vitals/I&O/Wt Last Vital Signs Temp 97.3 F L 03/10/21 08:00 Pulse 69 03/10/21 08:00 Resp 18 03/10/21 08:00 BP 110/68 03/10/21 08:00 Pulse Ox 90 03/10/21 08:00 03/09/21 03/10/21 03/10/21 22:59 06:59 14:59 Intake Total 340 / 1400 Balance 340 / 1400 Weight last 48 hrs Weight 174.633 kg Physical Exam Narrative: EXAM NARRATIVE: General: Alert oriented x3, patient seen sitting up in bed on 4L , large obese male HEENT: Normocephalic, atraumatic, EOMI, Cardio: Regular rate rhythm, normal S1-S2, no murmurs rubs gallops Respiratory: Good bilateral air entry, no wheezes no rhonchi appreciated, diminished at bases. GI: Abdomen soft, nontender, nondistended, bowel sounds + Behavior: Appropriate and cooperative Extremities: Pulses 2+, no edema, no cyanosis Data : 03/10/21 06:10 03/10/21 09:20 Micro: Microbiology 03/08/21 13:55 Blood Culture - Preliminary Blood NEGATIVE TO DATE 03/08/21 13:55 Blood Culture - Preliminary Blood NEGATIVE TO DATE 03/08/21 18:41 MRSA Culture - Final Nose 03/08/21 22:20 Legionella Urinary Antigen - Final Urine,Voided A&P Assessment and plan (1) Severe obstructive sleep apnea: Status: Chronic (2) Pneumonia due to COVID-19 virus: Status: Acute (3) Essential (primary) hypertension: Status: Chronic Additional A&P Information #COVID-19 pneumonia #Severe obstructive sleep apnea #Obesity #Hypertension ? We will place on dexamethasone 6 IV daily, remdesivir x5 days - Receieved 1 dose of actemra. ? Placed on CPAP overnight ? DuoNeb every 4 hours as needed ? Supportive care ? Oxygen as needed ? CRP 158 at admission. Repeat CRIp pending. ? Monitor oxygen. ? Vitamin C vitamin D ? Continue home medications for hypertension ? Sliding scale insulin -CTA did not show PE. -Procalcitonin borderline negative. Hold off on antibiotics for now. Pt wore HFNC overnight for 4 hours then took it off. He refused bipap. Although he is on 4L NC today i would like to observe him another night to ensure O2 requirements dont rise. If he does well and stays stable, plan to dc tomorrow. Full code DVT prophylaxis Lovenox 40 twice daily. Attestations Medical Necessity Statement*: > 24 stay for oxygen monitoring Coding Level of Care Code Acute [facility] Program Manager for [facility] Fwd Diagnoses Severe obstructive sleep apnea G47.33 Pneumonia due to COVID-19 virus U07.1; J12.82 Essential (primary) hypertension I10
[2021-03-10] MEDS: budesonide 0.5 mg/2 mL Neb INHALATION ×2 (09:24→20:45)
[2021-03-10 10:04] LABS: Anion Gap 16.9 (5-19); Blood Urea Nitrogen 27 mg/dL (6-20); Calcium 8.1 mg/dL (8.5-10.5); Carbon Dioxide 19 mmol/L (22-29); Chloride 102 mmol/L (98-107); Glomerular Filtration Rate 102.3 mL/min (90-130); Glucose 148 mg/dL (65-115); Osmolality Calculated 286 mOsm/kg (285-295); Potassium 3.9 mmol/L (3.5-5.1); Sodium 134 mmol/L (136-145)
[2021-03-10 12:14] LABS: Glucose Point of Care 152 mg/dL (70-110)
[2021-03-10] MEDS: dexamethasone 4 mg/mL INJ 6 MG IVP (14:34)
[2021-03-10 16:51] LABS: Glucose Point of Care 183 mg/dL (70-110)
[2021-03-10] MEDS: remdesivir 100 MG in sodium chloride 0.9% (100 ml) 80 ML IV (17:31)
[2021-03-10] MEDS: pantoprazole 40 mg SDV IVP (17:31)
[2021-03-10] MEDS: venlafaxine ER (24HR) 75 mg Capsule PO (20:32)
[2021-03-10] MEDS: lisinopril 20 mg Tablet PO (20:32)
[2021-03-11] VITALS: BP 139/76; PULSE 72; RESP 18; TEMP 36.8; O2SAT 92
[2021-03-11 04:00] VITALS: BP 138/65; PULSE 68; RESP 18; TEMP 36.6; O2SAT 94
[2021-03-11 05:11] LABS: Anion Gap 17.2 (5-19); Blood Urea Nitrogen 26 mg/dL (6-20); Calcium 8.5 mg/dL (8.5-10.5); Carbon Dioxide 18 mmol/L (22-29); Chloride 105 mmol/L (98-107); Glomerular Filtration Rate 102.3 mL/min (90-130); Glucose 129 mg/dL (65-115); Osmolality Calculated 288 mOsm/kg (285-295); Potassium 4.2 mmol/L (3.5-5.1); Sodium 136 mmol/L (136-145)
[2021-03-11 08:00] VITALS: BP 136/74; PULSE 74; RESP 18; TEMP 36.9; O2SAT 91
[2021-03-11 08:05] VITALS: PULSE 68; RESP 18; O2SAT 88
[2021-03-11] MEDS: ipratropium-albuterol 3 mL Neb INHALATION (08:09)
[2021-03-11] MEDS: budesonide 0.5 mg/2 mL Neb INHALATION (08:09)
[2021-03-11 08:10] VITALS: PULSE 72; O2SAT 92
[2021-03-11] MEDS: zinc gluconate 50 mg Tablet PO (08:41)
[2021-03-11] MEDS: ascorbic acid 500 mg Tablet 1000 MG PO (08:41)
[2021-03-11] MEDS: enoxaparin 40 mg/0.4 mL Syringe SUBCUT (08:41)
--- NOTE | 2021-03-11 11:11 | PM.DCS ---
Discharge Providers Date of Admission: 03/09/21 10:04 Date of Discharge: March 11, 2021 Attending Provider at Admission: Neela Mercedes MD Attending Provider at Discharge: Tez Steen MD Primary Care Provider: BHAKTI Quintanilla Diagnoses at Discharge Discharge Diagnosis (1) Severe obstructive sleep apnea: Status: Chronic (2) Pneumonia due to COVID-19 virus: Status: Acute (3) Essential (primary) hypertension: Status: Chronic Reason for Visit Reason for Visit: COVID + SOB,Weakness,LowO2,and [place] Hospital Course Hospital Course [place] is a 51 year old male with past medical history of anxiety depression, hypertension, degenerative disc disease in the lumbar region, hyperlipidemia, severe obstructive sleep apnea presented to the hospital today for COVID-like symptoms. Patient was admitted to [facility] for pneumonia secondary COVID-19, received 1 dose Actemr he received 3 days of remdesivir, 3 days of Decadron, remained afebrile, culture so far have been unremarkable, ambulating without symptomatology. Patient was examined the morning of 03/11/2021, he was saturating in the high 90s on room air, but with exertion he did require oxygen on home O2 eval. Patient will be discharged home on albuterol, budesonide, vitamin C, and vitamin D, zinc. Patient was advised to continue to self isolate at least 21 days since symptom onset or test positivity. Hydrate well, follow-up with primary care provider in 1 week. Patient was strongly encouraged to get COVID vaccination and flu vaccination within least a month, discussed with primary care provider. In terms of his hypercoagulability prophylaxis for COVID-19, patient was advised that he has increased risk of DVT and pulmonary emboli and other hypercoagulability events, currently given that he is mobile, has not had any recent surgeries, no prior history of DVT or pulmonary emboli, his risk of hypercoagulability events is low. But low risk does not mean no risk, advised to continue to be mobile, continue his home aspirin, and monitor for symptoms of DVT or pulmonary embolism if so go to the emergency room. Physical Exam Const: COMMON NORMALS: no acute distress and patient oriented x3 Neck/C-Spine: COMMON NORMALS: no JVD Resp: COMMON NORMALS: normal respiratory effort, No retractions, No use of accessory muscles and clear to auscultation bilaterally AUSCULTATION: clear to auscultation bilaterally Cardio: COMMON NORMALS: no JVD, regular rate, regular rhythm, S1 normal heart sound present and S2 normal heart sound present RATE: regular rate RHYTHM: regular rhythm HEART SOUNDS: S1 normal heart sound present and S2 normal heart sound present GI: COMMON NORMALS: Normal to inspection, nondistended, normoactive bowel sounds present, Soft to palpation and non-tender PALPATION: Yes Soft to palpation Extremity: COMMON NORMALS: no pedal edema Neuro: COMMON NORMALS: patient oriented x3 Psych: COMMON NORMALS: mental status grossly normal Discharge Data Data Completed and Pending: Completed Studies During Hospitalization Category Date Time Status CT angio chest PE protcl [id number] Stat Cat Scan 03/08/21 16:08 Completed XR chest 1V candace ble [id number] Routine Exams 03/09/21 08:00 Completed XR chest 1V candace ble [id number] Stat Exams 03/08/21 12:21 Completed Pending at discharge Category Date Time Status Blood Culture Sta t Lab 03/08/21 13:55 Results Sputum Culture an d Gram Stain Stat Lab 03/08/21 12:21 Uncollected Sputum Culture an d Gram Stain Stat Lab 03/08/21 16:18 Uncollected Labs from last 24 hours 03/11/21 03/10/21 03/10/21 04:12 16:26 12:05 Sodium 136 Potassium 4.2 Chloride 105 Carbon Dioxide 18 L Anion Gap 17.2 BUN 26 H Creatinine 0.8 GFR Calculation 102.3 Glucose 129 H POC Glucose 183 H 152 H Calculated Osmolal ity 288 Calcium 8.5 Vitals: Last Vital Signs Temp 98.5 F 03/11/21 08:00 Pulse 72 03/11/21 08:10 Resp 18 03/11/21 08:05 BP 136/74 03/11/21 08:00 Pulse Ox 92 03/11/21 08:10 Discharge Plan Discharge Patient Disposition: Home Condition: Stable Prescriptions: Continued albuterol sulfate 2.5 mg /3 mL (0.083 %) solution for nebulization 2.5 mg inhalation Q4H PRN (Reason: shortness of breath or wheezing) Qty: 75 RF: 2 (DME) Disposable nebulizer circuit See Rx Instructions .ROUTE .MEDSUPPLY Qty: 1 RF: 2 Vitamin C 500 mg Tablet 500 mg PO DAILY RF: 0 zinc 50 mg Tablet 50 mg PO DAILY RF: 0 Vitamin D3 125 mcg (5,000 unit) Tablet 125 mcg PO DAILY RF: 0 Effexor XR 75 mg capsule,extended release 24hr 75 mg PO BEDTIME RF: 0 lisinopril 20 mg tablet 20 mg PO BEDTIME RF: 0 doxepin 10 mg capsule 10 mg PO BEDTIME RF: 0 Lasix 20 mg tablet 20 mg PO QAM PRN (Reason: rx filled for 20mg daily pt states just takes prn) RF: 0 Tricor 145 mg tablet 145 mg PO BEDTIME RF: 0 albuterol sulfate [ProAir HFA] 90 mcg/actuation HFA aerosol inhaler 2 puff INHALATION Q6H PRN (Reason: shortness of breath or wheezing) 30 Days Qty: 8.5 RF: 0 budesonide [Pulmicort] 0.5 mg/2 mL suspension for nebulization 0.5 mg inhalation BID 30 Days Qty: 60 RF: 0 Changed aspirin 81 mg Tablet,Delayed Release (Dr/Ec) 81 mg PO DAILY 30 Days Qty: 30 RF: 0 Discontinued Aleve 220 mg Tablet 440 mg PO Q12H PRN (Reason: Pain) RF: 0 hydroxychloroquine 200 mg tablet 200 mg PO EVERY OTHER DAY RF: 0 dexamethasone 6 mg tablet 6 mg PO DAILY RF: 0 Discharge Orders: Discharge Order (Routine); Ordered 03/11/21 Ordered By: Tez Steen Other Ambulatory Orders: DME: Oxygen (Order) Location: None Selected Ordered By: Neela Mercedes Referrals: Luisa Benavides FNP-C [Primary Care Provider] - 1 week Mariano Mcdaniel MD [Physician] - 1 month Discharge Diet: Cardiac Discharge Activity: Resume usual activity Patient Instructions: Opioid Safety Activity Restrictions/Additional Instructions: - Please continue to be mobile -Continue aspirin 81 mg once daily -You are at increased risk of blood clots, remain mobile -If you develop calf pain or calf swelling, or sudden onset shortness of breath or bloody cough go to emergency room -Use albuterol and budesonide as as needed for shortness of breath -Vitamin C, vitamin D, zinc -If you have worsening shortness of breath, fevers go to the emergency room -Oxygen as prescribed -Please discuss with primary care provider about COVID vaccination within a month -Continue to self isolate for at least 21 days since symptom onset or test positivity -Facemask, hand wash, social distancing Discharge Attestations Time Spent in Discharge Care*: less than 30 min Quality Metrics Clinical Quality Measures During this hospital stay, did patient experience: None Coding Level of Care Code Acute [facility] FW OR note Diagnoses Severe obstructive sleep apnea G47.33 Pneumonia due to COVID-19 virus U07.1; J12.82 Essential (primary) hypertension I10
[2021-03-11 12:00] VITALS: BP 134/86; PULSE 70; RESP 18; TEMP 36.7; O2SAT 94
[2021-03-11 21:05] LABS: Glucose Point of Care 165 mg/dL (70-110)
[2021-03-11 21:05] LABS: Glucose Point of Care 130 mg/dL (70-110)
[2021-03-11 21:05] LABS: Glucose Point of Care 121 mg/dL (70-110)
[2021-03-11 21:05] LABS: Glucose Point of Care 102 mg/dL (70-110)
== END 2021-03-11 13:49 | disposition home or self-care (01) | DRG 177 ==
LOC: ER 16:14 → MEDSURG 17:17
PROVIDERS: Admitting Provider Internal Medicine; Emergency Provider Family Medicine; PCP Nurse Practitioner Family; Visit Provider Family Medicine
DX: U07.1 COVID-19 (principal); J12.82 Pneumonia due to coronavirus disease 2019; Z68.41 Body mass index [BMI] 40.0-44.9, adult; I10 Essential (primary) hypertension; E66.9 Obesity, unspecified; F41.8 Other specified anxiety disorders; M51.36 Other intervertebral disc degeneration, lumbar region; E78.2 Mixed hyperlipidemia; G47.33 Obstructive sleep apnea (adult) (pediatric); Z79.51 Long term (current) use of inhaled steroids
CPT/HCPCS: 36415; 36416; 36600; 71045; 71275; 80048; 80051; 80053; 82330; 82805; 82962; 83605; 83615; 83735; 84145; 85025; 85378; 86140; 87040; 87449; 87635; 87641; 93005; 94640; 94664; 96365; 96372; 96375; 99285; C9113; G0378; J1100; J1650; J1815; J3262; J7626

== ENCOUNTER 2021-03-26 10:48 | Outpatient (CLI) | payer BC, SELFPAY ==
--- NOTE | 2021-03-26 11:02 | XR_ITS ---
WS: [id number] PA and lateral chest, 03/26/2021 Clinical Data: Z86.16 - Personal history of COVID-19 Comparison: Portable chest, 03/09/2021. Findings: No nodules, masses or effusions are seen. The bilateral patchy lower lobe opacities have cl eared moderately. The heart remains the same. No pneumothorax is seen. XR/XR chest 2V* [id number] Impression: Moderate improvement in bilateral pulmonary opacities.
== END 2021-03-26 10:49 | disposition home or self-care (01) ==
LOC: RAD 10:55
PROVIDERS: PCP Nurse Practitioner; Visit Provider Nurse Practitioner
DX: Z86.16 Personal history of COVID-19 (principal)
CPT/HCPCS: 71046

== ENCOUNTER → 2021-12-23 16:03 | Outpatient (BNVA) | payer BC, SELFPAY | PROVIDERS: PCP Nurse Practitioner; Visit Provider Nurse Practitioner Family | DX: J02.9 Acute pharyngitis, unspecified (principal); F41.9 Anxiety disorder, unspecified; F32.9 Major depressive disorder, single episode, unspecified; E78.2 Mixed hyperlipidemia; I10 Essential (primary) hypertension; J06.9 Acute upper respiratory infection, unspecified | CPT/HCPCS: 87071; 87880 ==

== ENCOUNTER → 2022-01-01 11:03 | Outpatient (BNVA) | payer BC, SELFPAY | PROVIDERS: PCP Nurse Practitioner; Visit Provider Nurse Practitioner | DX: I10 Essential (primary) hypertension (principal); F41.9 Anxiety disorder, unspecified; F32.9 Major depressive disorder, single episode, unspecified; E78.2 Mixed hyperlipidemia; M51.36 Other intervertebral disc degeneration, lumbar region | CPT/HCPCS: 80053; 80061; 84443; 85025 ==

== ENCOUNTER → 2022-08-15 09:15 | Outpatient (BNVA) | payer BC, SELFPAY | PROVIDERS: PCP Nurse Practitioner; Visit Provider Nurse Practitioner | DX: I10 Essential (primary) hypertension (principal); Z12.5 Encounter for screening for malignant neoplasm of prostate | CPT/HCPCS: 80053; 80061; 84443; G0103 ==

== ENCOUNTER → 2023-02-17 16:15 | Outpatient (BNVA) | payer BC, SELFPAY | PROVIDERS: PCP Nurse Practitioner; Visit Provider Nurse Practitioner | DX: E66.01 Morbid (severe) obesity due to excess calories (principal); I10 Essential (primary) hypertension; U07.1 COVID-19; J45.909 Unspecified asthma, uncomplicated; F41.9 Anxiety disorder, unspecified; F32.9 Major depressive disorder, single episode, unspecified; E78.2 Mixed hyperlipidemia | CPT/HCPCS: 80053; 80061; 84443 ==

== ENCOUNTER → 2023-04-28 15:20 | Outpatient (BNVA) | payer BC, SELFPAY | PROVIDERS: PCP Nurse Practitioner; Visit Provider Nurse Practitioner Family | DX: R50.9 Fever, unspecified | CPT/HCPCS: 87400; 87426 ==

== ENCOUNTER → 2024-06-21 11:22 | Outpatient (BNVA) | payer BC, SELFPAY | PROVIDERS: PCP Nurse Practitioner; Visit Provider Nurse Practitioner | DX: F41.9 Anxiety disorder, unspecified (principal); F32.9 Major depressive disorder, single episode, unspecified; I10 Essential (primary) hypertension | CPT/HCPCS: 80053; 80061; 84443; 85025 ==

== ENCOUNTER → 2024-12-09 10:14 | Outpatient (BNVA) | payer BC, SELFPAY | PROVIDERS: PCP Nurse Practitioner; Visit Provider Nurse Practitioner | DX: Z12.5 Encounter for screening for malignant neoplasm of prostate (principal); I10 Essential (primary) hypertension; E78.2 Mixed hyperlipidemia | CPT/HCPCS: 80053; 80061; G0103 ==